=== PATIENT | female | born 1955 | race Caucasian/White ===

== ENCOUNTER 2017-03-05 07:00 | Inpatient (IN) | payer BC, OTHER ==
[2017-03-05] VITALS (19 sets, daily range): BP systolic 106–131; BP diastolic 56–72; PULSE 74–85; RESP 12–18; Ht 175.3 cm; Wt 78.0 kg
[~2017-03-05] VITALS: Ht 175.3 cm; Wt 78.0 kg
[2017-03-05] MEDS ORDERED: OMEP20CA16 PO (09:26)
--- NOTE | 2017-03-05 09:46 | HPN ---
Date/Time of Note Date/Time of Note DATE: 03/05/17 TIME: 09:46 Interval H&P Admission Note Pt. seen H&P reviewed: No system changes JAYCE ARMENTA PA-C Mar 05, 2017 09:46
[2017-03-05] MEDS ORDERED: CEPASTAT LOZENGE MT PRN (10:00)
[2017-03-05] MEDS ORDERED: BISACODYL 10 MG SUPP PR PRN (10:00)
[2017-03-05] MEDS ORDERED: AL HYDROX/MG HYDROX/SIMETH 30 ML CUP PO PRN (10:00)
[2017-03-05] MEDS ORDERED: CYCLOBENZAPRINE 10 MG TAB PO PRN (10:00)
[2017-03-05] MEDS ORDERED: HYDROmorphONE 0.2 MG/ML PCA IV SCH (10:00)
[2017-03-05] MEDS ORDERED: CEFAZOLIN 2 GM/50 ML (PMX) 50 ML IVPB ONE (10:00)
[2017-03-05] MEDS ORDERED: DIPHENHYDRAMINE 50 MG INJ IV PRN ×2 (10:00→12:30)
[2017-03-05] MEDS ORDERED: HYDROmorphONE 0.5 MG/0.5 ML SYG IV PRN (10:00)
[2017-03-05] MEDS: CEFAZOLIN 1 GM/50 ML (PMX) 50 ML IVPB SCH ×2 (10:00→18:09)
[2017-03-05] MEDS ORDERED: ZOLPIDEM 5 MG TAB PO PRN (10:00)
[2017-03-05] MEDS ORDERED: ONDANSETRON 4 MG INJ IV PRN ×2 (10:00→12:30)
[2017-03-05] MEDS ORDERED: ACETAMINOPHEN 325 MG TAB PO PRN (10:00)
[2017-03-05] MEDS ORDERED: NALOXONE (0.4 MG/ML) INJ IV PRN (10:00)
[2017-03-05] MEDS ORDERED: BUPIVACAINE 0.25% (MPF) 30 ML INJ ONE (10:09)
[2017-03-05] MEDS ORDERED: SURGIFOAM POWDER 1 GM KIT ONE (10:09)
[2017-03-05] MEDS ORDERED: BUPIVACAINE 0.5%/EPI (SDV) 30 ML INJ ONE (10:09)
[2017-03-05] MEDS ORDERED: THROMBIN 5000 UNIT VIAL ONE (10:10)
[2017-03-05] MEDS ORDERED: POLYMYXIN/BACITRACIN 1L IRRIG ONE (10:10)
[2017-03-05] MEDS ORDERED: SUCCINYLCHOLINE CHLORIDE 100 MG/5 ML SYG IV ONE ×2 (10:22→10:24)
[2017-03-05] MEDS ORDERED: MIDAZOLAM 1 MG/ML 2 ML INJ ONE (10:22)
[2017-03-05] MEDS ORDERED: PROPOFOL 20 ML ONE (10:24)
[2017-03-05] MEDS ORDERED: ROCURONIUM 50 MG INJ ONE (10:24)
[2017-03-05] MEDS ORDERED: LIDOCAINE 2% (SDV) 5 ML INJ ONE (10:24)
[2017-03-05] MEDS ORDERED: CEFAZOLIN 1 GM INJ ONE (10:36)
[2017-03-05] MEDS ORDERED: METOCLOPRAMIDE 10 MG INJ ONE (10:43)
[2017-03-05] MEDS ORDERED: DEXAMETHASONE 4 MG/ML 1 ML INJ ONE ×2 (10:43→11:39)
[2017-03-05] MEDS ORDERED: ONDANSETRON 4 MG INJ ONE (10:43)
[2017-03-05] MEDS ORDERED: FAMOTIDINE 20 MG INJ ONE (10:43)
[2017-03-05] MEDS ORDERED: POLYMYXIN/BACITRACIN 1L IRRIG IRR ONE (10:48)
[2017-03-05] MEDS ORDERED: THROMBIN 5000 UNIT VIAL TOP ONE (10:48)
[2017-03-05] MEDS ORDERED: FENTAnyl 50 MCG/ML VIAL ONE (11:11)
[2017-03-05] MEDS ORDERED: CA CHLORIDE 10% 10 ML SYRINGE ONE (11:12)
[2017-03-05] MEDS ORDERED: SUGAMMADEX SODIUM 200 MG/2 ML VIAL IV ONE (11:54)
--- NOTE | 2017-03-05 11:59 | SIPON ---
Date/Time of Note Date/Time of Note DATE: 03/05/17 TIME: 11:58 Operative Report Preoperative Diagnosis Left L5-S1 disc herniation with radiculopathy Postoperative Diagnosis Left L5-S1 disc herniation with radiculopathy Left L5-S1 conjoined nerve root Operation/Procedure Performed Left L5-S1 microdiscectomy Surgeon see signature line perioperative assistant Tammy Mas PA-C Anesthesia: general Estimated blood loss: 10 - 50 ml's Transfusion Required none Specimen L5-S1 disc Grafts/Implants none Complications none SABRINA SMITH MD Mar 05, 2017 11:59
--- NOTE | 2017-03-05 11:59 | SIPON ---
Date/Time of Note Date/Time of Note DATE: 03/05/17 TIME: 11:58 Operative Report Preoperative Diagnosis Left L5-S1 disc herniation with radiculopathy Postoperative Diagnosis Left L5-S1 disc herniation with radiculopathy Left L5-S1 conjoined nerve root Operation/Procedure Performed Left L5-S1 microdiscectomy Surgeon see signature line speech and language assistant Tammy Mas PA-C Anesthesia: general Estimated blood loss: 10 - 50 ml's Transfusion Required none Specimen L5-S1 disc Grafts/Implants none Complications none SABRINA SMITH MD Mar 05, 2017 11:59
--- NOTE | 2017-03-05 12:18 | OPR ---
DATE OF OPERATION: 03/05/2017 PREOPERATIVE DIAGNOSES: Left L5-S1 disk herniation with radiculopathy. POSTOPERATIVE DIAGNOSIS: 1. Left L5-S1 disk herniation with radiculopathy. 2. Left L5-S1 conjoined nerve root. PROCEDURE: 1. Left L5-S1 hemilaminotomy, partial medial facetectomy, foraminotomy. 2. Left L5-S1 lumbar microdiskectomy. 3. Decompression of left L5 nerve root. 4. Lateral localizing film x2. 5. Use of operative microscope. 6. Intraoperative neuromonitoring (1 hour 15 minutes). PRIMARY SURGEON: Viktor Sawyer MD FENDER MECHANIC APPRENTICE: JUDSON Dillard NEED FOR WASTE TRANSPORTATION TECHNICIAN: During this spinal surgical procedure, my credit control assistant was used to retrac t and protect the spinal nerves and dural sac. My credit control assistant also employed the suction catheters to evacuate blood from the surgical field to improve visualization of the neural structures. The bernard tant was medically necessary to facilitate the completion of the surgery in a safe and expeditious m deya. State of [place] regulations, as well as hospital bylaws, preclude the use of non-license d health care personnel, such as operating room technicians, to perform these functions. FINDINGS: Neuromonitoring at the start of the case revealed left L5 amplitude down 30%, left S1 amp litude down 50%. At the end of the case, this returned to normal. The patient had a herniated disk at L5-S1 with a conjoined L5-S1 nerve root. ESTIMATED BLOOD LOSS: Less than 30 mL. DRAINS: None. SPECIMENS: L5-S1 disk. COMPLICATIONS OF PROCEDURES: None. ANESTHESIOLOGIST: Dr. Eric. TYPE OF ANESTHESIA: General. INDICATIONS FOR PROCEDURE: This 61-year-old female with left lumbosacral radiculopathy in the setti ng of disk herniation. She failed nonoperative measures. Therefore, I recommended proceeding with above-mentioned surgery. Preoperatively, we discussed the risks, benefits and alternatives. She un derstood and wished to proceed. DESCRIPTION OF PROCEDURE IN DETAIL: The patient was identified in the preoperative holding area, [facility], taken to the operating room, where she was successfully placed under general a nesthesia. Neuromonitoring leads were placed, sequential compressive devices were applied. Neuromo nitoring was utilized during the procedure for 1 hour 15 minutes to include SSEP, MEP and EMG. Star t time was 10:45 a.m., closure time was 12:00 p.m. The patient was placed on the operating table in prone position over a Armando frame. All bony prominences were well padded. The back was prepped a nd draped in the usual sterile fashion. Spinal needles were placed and lateral localizing films obt ained to confirm the correct levels. Once this was confirmed, microscope was brought in and a left- sided hemilaminotomy, partial medial facetectomy, and foraminotomy were performed. Ligamentum flavu m was then sharply dissected. Here I encountered a conjoined nerve root with a very low takeoff of L5. I, therefore, had to decompress more superiorly in order to identify the full L5 nerve root. I identified the left L5 and S1 pedicles. This is beyond what is required for regular microdiskectom y. I then was able to tease the S1 nerve root medially and identified the annulus, which my assista nt retracted medially and held in place with a D'Errico retractor. I then used a [place] elevator to enter the disk space. Once I had safely entered the disk space, I made the annulotomy somewhat b igger, after which I was able to perform the diskectomy removing the free fragments. Once this was done, all nerve signals returned to normal. I then irrigated the disk space and the wound. Hemosta sis achieved with bipolar cautery and Surgifoam. The wound was dry and I felt I did not need to coleen ce a drain. A Valsalva maneuver was performed and there was no leak of CSF. Epidural catheter was passed through which I injected 100 mcg of fentanyl. I then took thrombin mixed with PPP and inject ed this over the dura for hemostatic purposes. The retractors were then removed and I closed the de ep fascia with #1 Vicryl stitch. I then closed subcutaneous tissue with 2-0 Vicryl stitch. Microsc ope was taken off the field. A 4-0 Monocryl closure was then performed. Dermabond and sterile dres sings were then applied. The patient was then awakened from anesthesia and taken to recovery in sta ble condition. Lap, sponge and instrument counts were correct x2. There were no apparent complicat ions during the procedure. The patient will be admitted to the orthopedic onofre for routine postoperative care to include pain c ontrol, neurovascular checks, antibiotics and physical therapy. Dictated By: VIKTOR JOINER/CHAD Conf#: [id number] DID#: [id number]
--- NOTE | 2017-03-05 12:18 | OPR ---
DATE OF OPERATION: 03/05/2017 PREOPERATIVE DIAGNOSES: Left L5-S1 disk herniation with radiculopathy. POSTOPERATIVE DIAGNOSIS: 1. Left L5-S1 disk herniation with radiculopathy. 2. Left L5-S1 conjoined nerve root. PROCEDURE: 1. Left L5-S1 hemilaminotomy, partial medial facetectomy, foraminotomy. 2. Left L5-S1 lumbar microdiskectomy. 3. Decompression of left L5 nerve root. 4. Lateral localizing film x2. 5. Use of operative microscope. 6. Intraoperative neuromonitoring (1 hour 15 minutes). PRIMARY SURGEON: Viktor Sawyer MD DRY CLEANING MACHINE OPERATOR HELPER: JUDSON Dillard NEED FOR TRAINER: During this spinal surgical procedure, my phys assistant was used to retrac t and protect the spinal nerves and dural sac. My phys assistant also employed the suction catheters to evacuate blood from the surgical field to improve visualization of the neural structures. The bernard tant was medically necessary to facilitate the completion of the surgery in a safe and expeditious m deya. State of [place] regulations, as well as hospital bylaws, preclude the use of non-license d health care personnel, such as operating room technicians, to perform these functions. FINDINGS: Neuromonitoring at the start of the case revealed left L5 amplitude down 30%, left S1 amp litude down 50%. At the end of the case, this returned to normal. The patient had a herniated disk at L5-S1 with a conjoined L5-S1 nerve root. ESTIMATED BLOOD LOSS: Less than 30 mL. DRAINS: None. SPECIMENS: L5-S1 disk. COMPLICATIONS OF PROCEDURES: None. ANESTHESIOLOGIST: Dr. Eric. TYPE OF ANESTHESIA: General. INDICATIONS FOR PROCEDURE: This 61-year-old female with left lumbosacral radiculopathy in the setti ng of disk herniation. She failed nonoperative measures. Therefore, I recommended proceeding with above-mentioned surgery. Preoperatively, we discussed the risks, benefits and alternatives. She un derstood and wished to proceed. DESCRIPTION OF PROCEDURE IN DETAIL: The patient was identified in the preoperative holding area, [facility], taken to the operating room, where she was successfully placed under general a nesthesia. Neuromonitoring leads were placed, sequential compressive devices were applied. Neuromo nitoring was utilized during the procedure for 1 hour 15 minutes to include SSEP, MEP and EMG. Star t time was 10:45 a.m., closure time was 12:00 p.m. The patient was placed on the operating table in prone position over a Armando frame. All bony prominences were well padded. The back was prepped a nd draped in the usual sterile fashion. Spinal needles were placed and lateral localizing films obt ained to confirm the correct levels. Once this was confirmed, microscope was brought in and a left- sided hemilaminotomy, partial medial facetectomy, and foraminotomy were performed. Ligamentum flavu m was then sharply dissected. Here I encountered a conjoined nerve root with a very low takeoff of L5. I, therefore, had to decompress more superiorly in order to identify the full L5 nerve root. I identified the left L5 and S1 pedicles. This is beyond what is required for regular microdiskectom y. I then was able to tease the S1 nerve root medially and identified the annulus, which my assista nt retracted medially and held in place with a D'Errico retractor. I then used a [place] elevator to enter the disk space. Once I had safely entered the disk space, I made the annulotomy somewhat b igger, after which I was able to perform the diskectomy removing the free fragments. Once this was done, all nerve signals returned to normal. I then irrigated the disk space and the wound. Hemosta sis achieved with bipolar cautery and Surgifoam. The wound was dry and I felt I did not need to coleen ce a drain. A Valsalva maneuver was performed and there was no leak of CSF. Epidural catheter was passed through which I injected 100 mcg of fentanyl. I then took thrombin mixed with PPP and inject ed this over the dura for hemostatic purposes. The retractors were then removed and I closed the de ep fascia with #1 Vicryl stitch. I then closed subcutaneous tissue with 2-0 Vicryl stitch. Microsc ope was taken off the field. A 4-0 Monocryl closure was then performed. Dermabond and sterile dres sings were then applied. The patient was then awakened from anesthesia and taken to recovery in sta ble condition. Lap, sponge and instrument counts were correct x2. There were no apparent complicat ions during the procedure. The patient will be admitted to the orthopedic onofre for routine postoperative care to include pain c ontrol, neurovascular checks, antibiotics and physical therapy. Dictated By: VIKTOR JOINER/CHAD Conf#: [id number] DID#: [id number]
[2017-03-05] MEDS: D5W-0.45 NACL + KCL 20 MEQ 1,000 ML IV SCH ×2 (12:22→19:46)
[2017-03-05] MEDS ORDERED: HALOPERIDOL 5 MG INJ IV PRN (12:30)
[2017-03-05] MEDS ORDERED: HYDROmorphONE (0.2 MG/ML) 10ML SYG IV PRN (12:30)
[2017-03-05] MEDS ORDERED: MEPERIDINE 25 MG INJ IV PRN (12:30)
--- NOTE | 2017-03-05 12:45 | RADRPT ---
PROCEDURE: Intraoperative XR. CLINICAL INDICATION: Intraoperative radiograph during lumbar spine surgery. TECHNIQUE: Spot intraoperative lateral lumbar x-ray image was provided. The images were reviewed on a high-resolution PACS workstation. COMPARISON: None available FINDINGS: Spot intraoperative lateral lumbar view were provided during lumbar spine surgery. The images demon strate metallic probes at the level of L4-5 and S1. There is moderate spondylosis at L4-5 with disk- space narrowing and associated discogenic endplate changes. IMPRESSION: 1. Spot intraoperative lateral lumbar view during lumbar spine surgery were provided. 2. Please see operative report of the same day for further information. RPTAT: HGAS .Abdirashid Valentine MD, MD Date Time Electronically viewed and signed by .Abdirashid Valentine MD, on 03/05/2017 12:45 .S/
--- NOTE | 2017-03-05 12:46 | RADRPT ---
PROCEDURE: Intraoperative XR. CLINICAL INDICATION: Intraoperative radiograph during lumbar spine surgery. TECHNIQUE: Spot intraoperative lateral lumbar x-ray image was provided. The images were reviewed on a high-resolution PACS workstation. COMPARISON: None available FINDINGS: Spot intraoperative lateral lumbar view were provided during lumbar spine surgery. The images demon strate italic instrumentation at the level of L5-S1. There is moderate spondylosis at L4-5 with disk -space narrowing and associated discogenic endplate changes.. IMPRESSION: 1. Spot intraoperative lateral lumbar view during lumbar spine surgery were provided. 2. Please see operative report of the same day for further information. RPTAT: HGAS .Abdirashid Valentine MD, Date Time Electronically viewed and signed by .Abdirashid Valentine MD, on 03/05/2017 12:46 .S/
--- NOTE | 2017-03-05 14:43 | PREOPHP ---
DATE OF ADMISSION: 03/05/[address] Sawyer for asking me to participate in the medical management of this patient. REASON FOR CONSULTATION: Gastroesophageal reflux disease, essential tremor, migraine headaches. HISTORY OF PRESENT ILLNESS: This 61-year-old female is now postop a lumbar spine surgery by Dr. Evangelista. The patient underwent a left L5-S1 hemilaminectomy, partial medial facetectomy, foraminotom y and a left L4-S1 lumbar microdiscectomy. This was done for left L5-S1 disk herniation with radicu lopathy. This patient was having left sciatic nerve pain since 11/2016. She developed pain that ra diated from her left buttocks down her left leg into her left foot. She may have been having proble ms with her gait prior to the pain. She had 1 epidural injection which did not help. She then saw Dr. Sawyer who recommended surgery. The patient is awake and alert at this time. She denies shaila n, chest pain, shortness of breath. There is a note on the chart from her primary care physician, Stephan Jimenez which details her past medical history and medication. PAST MEDICAL HISTORY: Remarkable for migraine headaches, essential tremor, gastroesophageal reflux disease. PAST SURGICAL HISTORY: Breast implants bilateral with a redo in 1994, in 1990. FAMILY HISTORY: Both parents are . Father of an aortic aneurysm, [place] in 1993, mother d ied 3 months after the father. SOCIAL HISTORY: The patient does not smoke, does not drink alcohol. 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 MEDICATIONS: Include: 1. Yuvafem 10 mcg intravaginally twice a week. 2. Progesterone 100 mg capsule once a day at bedtime. 3. Divigel 1 mg packet apply topically once a day. 4. Prilosec OTC 20 mg a day. ALLERGIES: SHE HAS NO KNOWN DRUG ALLERGIES. PHYSICAL EXAMINATION: GENERAL: At this time, reveals a well-developed female in no apparent distress. VITAL SIGNS: Temperature is 98, pulse 76, respirations 16, blood pressure 118/67, O2 saturation 95% on room air. HEENT: Head normocephalic. Eyes: Extraocular muscles intact. NOSE AND MOUTH: Normal. NECK: Supple. No neck vein distention. LUNGS: Clear to auscultation. HEART: Regular rhythm. No murmurs, gallops or rubs. ABDOMEN: Soft, nontender. EXTREMITIES: No peripheral edema. IMPRESSION: This patient is stable after surgery today. She is doing well without any chest pain o r shortness of breath. Her blood pressure is well controlled. I will manage the patient's medical problems including gastroesophageal reflux disease. PLAN: 1. Resume some routine medications. 2. Check labs in the morning. 3. Postop lumbar spine surgery protocol. 4. I will follow the patient along with you medically. Dictated By: MANSI CALDERÓN MD, ND/CHAD Conf#: [id number] DID#: [id number]
--- NOTE | 2017-03-05 14:43 | PREOPHP ---
DATE OF ADMISSION: 03/05/[address] Sawyer for asking me to participate in the medical management of this patient. REASON FOR CONSULTATION: Gastroesophageal reflux disease, essential tremor, migraine headaches. HISTORY OF PRESENT ILLNESS: This 61-year-old female is now postop a lumbar spine surgery by Dr. Evangelista. The patient underwent a left L5-S1 hemilaminectomy, partial medial facetectomy, foraminotom y and a left L4-S1 lumbar microdiscectomy. This was done for left L5-S1 disk herniation with radicu lopathy. This patient was having left sciatic nerve pain since 11/2016. She developed pain that ra diated from her left buttocks down her left leg into her left foot. She may have been having proble ms with her gait prior to the pain. She had 1 epidural injection which did not help. She then saw Dr. Sawyer who recommended surgery. The patient is awake and alert at this time. She denies shaila n, chest pain, shortness of breath. There is a note on the chart from her primary care physician, Stephan Jimenez which details her past medical history and medication. PAST MEDICAL HISTORY: Remarkable for migraine headaches, essential tremor, gastroesophageal reflux disease. PAST SURGICAL HISTORY: Breast implants bilateral with a redo in 1994, in 1990. FAMILY HISTORY: Both parents are . Father of an aortic aneurysm, [place] in 1993, mother d ied 3 months after the father. SOCIAL HISTORY: The patient does not smoke, does not drink alcohol. 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 MEDICATIONS: Include: 1. Yuvafem 10 mcg intravaginally twice a week. 2. Progesterone 100 mg capsule once a day at bedtime. 3. Divigel 1 mg packet apply topically once a day. 4. Prilosec OTC 20 mg a day. ALLERGIES: SHE HAS NO KNOWN DRUG ALLERGIES. PHYSICAL EXAMINATION: GENERAL: At this time, reveals a well-developed female in no apparent distress. VITAL SIGNS: Temperature is 98, pulse 76, respirations 16, blood pressure 118/67, O2 saturation 95% on room air. HEENT: Head normocephalic. Eyes: Extraocular muscles intact. NOSE AND MOUTH: Normal. NECK: Supple. No neck vein distention. LUNGS: Clear to auscultation. HEART: Regular rhythm. No murmurs, gallops or rubs. ABDOMEN: Soft, nontender. EXTREMITIES: No peripheral edema. IMPRESSION: This patient is stable after surgery today. She is doing well without any chest pain o r shortness of breath. Her blood pressure is well controlled. I will manage the patient's medical problems including gastroesophageal reflux disease. PLAN: 1. Resume some routine medications. 2. Check labs in the morning. 3. Postop lumbar spine surgery protocol. 4. I will follow the patient along with you medically. Dictated By: MANSI CALDERÓN MD, ND/CHAD Conf#: [id number] DID#: [id number]
[2017-03-05] MEDS: DOCUSATE SODIUM 100 MG CAP PO SCH (20:25)
[2017-03-05] MEDS ORDERED: PROGESTERONE 100 MG CAP PO SCH (21:00)
[2017-03-06 00:48] VITALS: BP 108/55; RESP 18
[2017-03-06] MEDS: CEFAZOLIN 1 GM/50 ML (PMX) 50 ML IVPB SCH (02:06)
[2017-03-06] MEDS: D5W-0.45 NACL + KCL 20 MEQ 1,000 ML IV SCH (05:10)
[2017-03-06] MEDS ORDERED: PANTOPRAZOLE (EC) 40 MG TAB PO SCH (06:00)
[2017-03-06 07:28] VITALS: BP 96/53; RESP 18
--- NOTE | 2017-03-06 08:19 | CONS ---
Date/Time of Note Date/Time of Note DATE: 03/06/17 TIME: 08:16 Assessment/Plan Assessment/Plan Chief Complaint/Hosp Course 1. This patient is 1 day postop a lumbar sacral spine surgery. She is doing well. She can be discharged home today when cleared by physical therapy and by orthopedics. She can resume her routine preadmission medications. Problems: Consultation Date/Type/Reason Admit Date/Time Mar 05, 2017 at 08:50 Initial Consult Date 24 HR Interval Summary Free Text/Dictation This patient is now one day postop a lumbar sacral spine surgery. She is awake and alert. She has no complaints. Constitutional: improved, no complaints Exam/Review of Systems Vital Signs Vitals Vital Signs Date Time Temp Pulse Resp B/P Pulse Ox O2 Delivery O2 Flow Rate FiO2 03/06/17 07:28 97.9 60 18 96/53 96 03/05/17 12:55 Room Air Intake and Output 03/05/17 03/05/17 03/06/17 15:00 23:00 07:00 Intake Total 1000 ml 1395 ml Output Total 10 ml Balance 990 ml 1395 ml Exam Constitutional: alert, oriented, well developed Neck: non-tender, supple Respiratory: clear to auscultation, normal air movement Cardiovascular: regular rate and rhythm Musculoskeletal: nl extremities to inspection Results Result Diagram: 03/06/17 0447 03/06/17 0447 Results 24 hrs Laboratory Tests Test 03/06/17 04:47 White Blood Count 17.0 H Red Blood Count 4.05 L Hemoglobin 12.6 Hematocrit 38.9 Mean Corpuscular Volume 96.0 Mean Corpuscular Hemoglobin 31.1 Mean Corpuscular Hemoglobin Concent 32.4 Red Cell Distribution Width 13.5 Platelet Count 237 Mean Platelet Volume 9.0 Neutrophils % 85.9 H Lymphocytes % 8.6 L Monocytes % 4.8 Eosinophils % 0.0 Basophils % 0.1 Nucleated Red Blood Cells % 0.0 Neutrophils # 14.7 H Lymphocytes # 1.5 Monocytes # 0.8 Eosinophils # 0.0 Basophils # 0.0 Nucleated Red Blood Cells # 0.0 Sodium Level 146 H Potassium Level 4.9 Chloride Level 107 Carbon Dioxide Level 28 Anion Gap 16 Blood Urea Nitrogen 17 Creatinine 1.00 Glucose Level 163 Calcium Level 9.9 Magnesium Level 1.9 Medications Medications Current Medications Potassium Chloride/Dextrose/ Sod Cl (D5-1/2ns + KCl 20 Meq) 1,000 ml @ 100 mls/ hr Q10H IV Last administered on 03/05/17t 12:22; Admin Dose 100 MLS/HR; Start 03/05/17 at 09:46 Acetaminophen/ Hydrocodone Bitart ([place] (325)) 1 tab Q4H PRN PO PAIN LEVEL 1-5; Start 03/06/17 at 10:00 Acetaminophen/ Hydrocodone Bitart ([place] (325)) 2 tab Q4H PRN PO PAIN LEVEL 6-10; Start 03/06/17 at 10:00 Hydromorphone HCl (Dilaudid) 0.2 mg Q1H PRN IV BREAKTHROUGH PAIN; Start at 10:00 Ondansetron HCl (Zofran Inj) 4 mg Q6H PRN IV NAUSEA AND/OR VOMITING; Start at 10:00 Bisacodyl (Dulcolax Supp) 10 mg DAILY PRN [place] CONSTIPATION; Start 03/05/17 at 10:00 Docusate Sodium (Colace) 100 mg BID PO Last administered on 03/05/17t 20:25; Admin Dose 100 MG; Start 03/05/17 at 21:00 Al Hydrox/Mg Hydrox/Simethicone (Mag-Al Plus) 15 ml Q6H PRN PO CONSTIPATION/ DYSPEPSIA; Start 03/05/17 at 10:00 Acetaminophen (Tylenol Tab) 650 mg Q4H PRN PO JEWELL OR TEMP GREATER THAN 101.3F; Start 03/05/17 at 10:00 Cyclobenzaprine HCl (Flexeril) 10 mg TID PRN PO MUSCLE SPASMS; Start 03/05/17 at 10:00 Phenol (Cepastat Lozenge) 1 lozenge PRN PRN [place] SORE THROAT; Start 03/05/17 at 10:00 Diphenhydramine HCl (Benadryl) 25 mg Q6H PRN IV ITCHING; Start 03/05/17 at 10: 00 Naloxone HCl (Narcan) 0.2 mg Q2M PRN IV RR 8 BREATHS/MIN OR LESS; Start at 10:00 Hydromorphone HCl (Dilaudid COATING MACHINE OPERATOR) COATING MACHINE OPERATOR to be started in PACU Q4PCA IV Last administered on 03/05/17 12:22; Admin Dose 6 MG; Start 03/05/17 at 10:00 Miscellaneous Information 1. Hold COATING MACHINE OPERATOR at 1,000... COATING MACHINE OPERATOR IV ; Start 03/05/17 at 10 :00 Pantoprazole (Protonix Tab) 40 mg DAILY@06 PO Last administered on 03/06/17 05 :10; Admin Dose 40 MG; Start 03/06/17 at 06:00 Progesterone (Prometrium) 100 mg HS PO Last administered on 03/05/17 20:25; Admin Dose 100 MG; Start 03/05/17 at 21:00 MANSI CALDERÓN MD Mar 06, 2017 08:19
--- NOTE | 2017-03-06 08:19 | CONS ---
Date/Time of Note Date/Time of Note DATE: 03/06/17 TIME: 08:16 Assessment/Plan Assessment/Plan Chief Complaint/Hosp Course 1. This patient is 1 day postop a lumbar sacral spine surgery. She is doing well. She can be discharged home today when cleared by physical therapy and by orthopedics. She can resume her routine preadmission medications. Problems: Consultation Date/Type/Reason Admit Date/Time Mar 05, 2017 at 08:50 Initial Consult Date 24 HR Interval Summary Free Text/Dictation This patient is now one day postop a lumbar sacral spine surgery. She is awake and alert. She has no complaints. Constitutional: improved, no complaints Exam/Review of Systems Vital Signs Vitals Vital Signs Date Time Temp Pulse Resp B/P Pulse Ox O2 Delivery O2 Flow Rate FiO2 03/06/17 07:28 97.9 60 18 96/53 96 03/05/17 12:55 Room Air Intake and Output 03/05/17 03/05/17 03/06/17 15:00 23:00 07:00 Intake Total 1000 ml 1395 ml Output Total 10 ml Balance 990 ml 1395 ml Exam Constitutional: alert, oriented, well developed Neck: non-tender, supple Respiratory: clear to auscultation, normal air movement Cardiovascular: regular rate and rhythm Musculoskeletal: nl extremities to inspection Results Result Diagram: 03/06/17 0447 03/06/17 0447 Results 24 hrs Laboratory Tests Test 03/06/17 04:47 White Blood Count 17.0 H Red Blood Count 4.05 L Hemoglobin 12.6 Hematocrit 38.9 Mean Corpuscular Volume 96.0 Mean Corpuscular Hemoglobin 31.1 Mean Corpuscular Hemoglobin Concent 32.4 Red Cell Distribution Width 13.5 Platelet Count 237 Mean Platelet Volume 9.0 Neutrophils % 85.9 H Lymphocytes % 8.6 L Monocytes % 4.8 Eosinophils % 0.0 Basophils % 0.1 Nucleated Red Blood Cells % 0.0 Neutrophils # 14.7 H Lymphocytes # 1.5 Monocytes # 0.8 Eosinophils # 0.0 Basophils # 0.0 Nucleated Red Blood Cells # 0.0 Sodium Level 146 H Potassium Level 4.9 Chloride Level 107 Carbon Dioxide Level 28 Anion Gap 16 Blood Urea Nitrogen 17 Creatinine 1.00 Glucose Level 163 Calcium Level 9.9 Magnesium Level 1.9 Medications Medications Current Medications Potassium Chloride/Dextrose/ Sod Cl (D5-1/2ns + KCl 20 Meq) 1,000 ml @ 100 mls/ hr Q10H IV Last administered on 03/05/17t 12:22; Admin Dose 100 MLS/HR; Start 03/05/17 at 09:46 Acetaminophen/ Hydrocodone Bitart (Cotati (325)) 1 tab Q4H PRN PO PAIN LEVEL 1-5; Start 03/06/17 at 10:00 Acetaminophen/ Hydrocodone Bitart (Cotati (325)) 2 tab Q4H PRN PO PAIN LEVEL 6-10; Start 03/06/17 at 10:00 Hydromorphone HCl (Dilaudid) 0.2 mg Q1H PRN IV BREAKTHROUGH PAIN; Start at 10:00 Ondansetron HCl (Zofran Inj) 4 mg Q6H PRN IV NAUSEA AND/OR VOMITING; Start at 10:00 Bisacodyl (Dulcolax Supp) 10 mg DAILY PRN MO CONSTIPATION; Start 03/05/17 at 10:00 Docusate Sodium (Colace) 100 mg BID PO Last administered on 03/05/17t 20:25; Admin Dose 100 MG; Start 03/05/17 at 21:00 Al Hydrox/Mg Hydrox/Simethicone (Mag-Al Plus) 15 ml Q6H PRN PO CONSTIPATION/ DYSPEPSIA; Start 03/05/17 at 10:00 Acetaminophen (Tylenol Tab) 650 mg Q4H PRN PO JEWELL OR TEMP GREATER THAN 101.3F; Start 03/05/17 at 10:00 Cyclobenzaprine HCl (Flexeril) 10 mg TID PRN PO MUSCLE SPASMS; Start 03/05/17 at 10:00 Phenol (Cepastat Lozenge) 1 lozenge PRN PRN MT SORE THROAT; Start 03/05/17 at 10:00 Diphenhydramine HCl (Benadryl) 25 mg Q6H PRN IV ITCHING; Start 03/05/17 at 10: 00 Naloxone HCl (Narcan) 0.2 mg Q2M PRN IV RR 8 BREATHS/MIN OR LESS; Start at 10:00 Hydromorphone HCl (Dilaudid NURSE SUPERVISOR) NURSE SUPERVISOR to be started in PACU Q4PCA IV Last administered on 03/05/17 12:22; Admin Dose 6 MG; Start 03/05/17 at 10:00 Miscellaneous Information 1. Hold NURSE SUPERVISOR at 1,000... NURSE SUPERVISOR IV ; Start 03/05/17 at 10 :00 Pantoprazole (Protonix Tab) 40 mg DAILY@06 PO Last administered on 03/06/17 05 :10; Admin Dose 40 MG; Start 03/06/17 at 06:00 Progesterone (Prometrium) 100 mg HS PO Last administered on 03/05/17 20:25; Admin Dose 100 MG; Start 03/05/17 at 21:00 MANSI CALDERÓN MD Mar 06, 2017 08:19
--- NOTE | 2017-03-06 08:49 | DS ---
Date/Time of Note Date/Time of Note DATE: 03/06/17 TIME: 08:48 Discharge Summary Admission/Discharge Info Admit Date/Time Mar 05, 2017 at 08:50 Discharge Date/Time March 06 Discharge Diagnosis Status post lumbar microdiscectomy Procedures Lumbar microdiscectomy Hx of Present Illness Back and left leg pain Hospital Course The patient was admitted to the orthopedic onofre after undergoing the above procedure. By postoperative day 1 the patient was doing well and deemed stable for discharge with follow-up arranged with the undersigned Home Meds Reported Medications Omeprazole* (Omeprazole*) 20 Mg Capsule.dr, 20 MG PO DAILY, #30 CAP 03/05/17 Primary Care Provider Not On Staff Doctor Pending Labs Laboratory Tests Test 03/06/17 04:47 White Blood Count 17.010^3/ul (4.8-10.8) Red Blood Count 4.0510^6/ul (4.20-5.40) Hemoglobin 12.6g/dl (12.0-16.0) Hematocrit 38.9% (37.0-47.0) Mean Corpuscular Volume 96.0fl (82.0-101.0) Mean Corpuscular Hemoglobin 31.1pg (29.0-33.0) Mean Corpuscular Hemoglobin Concent 32.4g/dl (32.0-37.0) Red Cell Distribution Width 13.5% (11.5-14.5) Platelet Count 74702^3/UL (140-415) Mean Platelet Volume 9.0fl (7.4-10.4) Neutrophils % 85.9% (39.0-77.0) Lymphocytes % 8.6% (15.0-51.0) Monocytes % 4.8% (0.0-11.0) Eosinophils % 0.0% (0.0-7.0) Basophils % 0.1% (0.0-2.0) Nucleated Red Blood Cells % 0.0/100WBC (0.0-0.0) Neutrophils # 14.710^3/ul (1.6-7.5) Lymphocytes # 1.510^3/ul (0.8-2.9) Monocytes # 0.810^3/ul (0.3-0.9) Eosinophils # 0.010^3/ul (0.0-0.5) Basophils # 0.010^3/ul (0.0-0.1) Nucleated Red Blood Cells # 0.010^3/ul (0.0-0.0) Sodium Level 146mmol/L (135-144) Potassium Level 4.9mmol/L (3.5-5.1) Chloride Level 107mmol/L (97-110) Carbon Dioxide Level 28mmol/L (21-31) Anion Gap 16 (8-16) Blood Urea Nitrogen 17mg/dl (7-20) Creatinine 1.00mg/dl (0.44-1.00) Glucose Level 163mg/dl (70-220) Calcium Level 9.9mg/dl (8.4-10.2) Magnesium Level 1.9mg/dl (1.7-2.5) SABRINA SMITH MD Mar 06, 2017 08:49
[2017-03-06] MEDS: DOCUSATE SODIUM 100 MG CAP PO SCH (09:30)
[2017-03-06] MEDS: HYDROCODONE/APAP (10/325) TAB PO PRN ×2 (09:30→12:01)
[2017-03-06] MEDS ORDERED: HYDROCODONE/APAP (10/325) TAB PO PRN (10:00)
== END 2017-03-06 12:05 | disposition home or self-care (01) | DRG 520 ==
LOC: EDSTATUS 07:00 → REC 08:50 → MS1 13:08
PROVIDERS: ADMIT Specialist; ATTEND Specialist
PROC: 0SB40ZZ Excision of Lumbosacral Disc, Open Approach (ICD-10-PCS; principal; 2017-03-05 11:00)
DX: M51.17 Intervertebral disc disorders with radiculopathy, lumbosacral region (principal); Q07.9 Congenital malformation of nervous system, unspecified
CPT/HCPCS: 72020; 80048; 83735; 85025; 86999; 88304; 97163; J0690; J1100; J1170; J2250; J2405; J2765; J3010; J3480